=== PATIENT | male | born 2005 | race Caucasian/White ===

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

== ENCOUNTER 2025-06-18 19:50 | Emergency (ER) | payer SELFPAY ==
[2025-06-18 19:55] VITALS: BP 153/85; PULSE 81; RESP 20; TEMP 36.6; O2SAT 99; BMI 32.1
--- NOTE | 2025-06-18 19:59 | ED_ITS ---
HPI - Eye Problem General Chief complaint: Eye Problems Stated complaint: Bleeding/pain lt side eye Time Seen by Provider: 06/18/25 19:59 Source: patient, RN notes reviewed and old records reviewed Mode of arrival: ambulatory Limitations: no limitations History of Present Illness ED Provider: Chris HENLEY Narrative: Patient is a 19 year old male presenting to the emergency department with complaint of bleeding from left eye around 1 hour prior to arrival. States bleeding began after he rubbed his eye. He reports that for the past 1-2 weeks he has had swelling, itching and drainage from both eyes. Yesterday he felt his symptoms were beginning to improve. Today he was rubbing his left eye and then noticed a small amount of bleeding. He does not wear contact lenses. He denies any injury or concern for foreign body. Scant amount of dry blood around left eye upon arrival to the ED. Denies any blurred or double vision. Reports some purulent drainage over the past 1-2 weeks. Denies pain, reports itching/irritation. Related Data Previous Rx's ?Medication ?Instructions ?Recorded doxycycline hyclate 100 mg tablet 100 mg PO BID 14 day s #28 tabs 03/06/22 ondansetron 4 mg disintegrating 4 mg PO Q6-8H PRN naus ea and 03/07/22 tablet vomiting #7 tabs doxycycline hyclate 100 mg capsule 100 mg PO BID #13 c aps 07/19/22 doxycycline hyclate 100 mg tablet 100 mg PO BID #10 ta bs 11/28/22 polymyxin B sulfate 10,000 1 drp ophthalmic (eye) Q3H 7 days 06/18/25 unit-trimethoprim 1 mg/mL eye drops #10 mL Allergies Allergy/AdvReac Type Severity Reaction Status Date / Time No Known Allergies Allergy Verified 06/18/25 19:59 Review of Systems Review of Systems: As per hPI Yes all other systems are reviewed and are negative Constitutional: Constitutional: Reports as per HPI PMFSH Past Medical History Medical History Chlamydia No known health problems Physical Exam Vital Signs: Vital Signs: Last Vital Signs Temp 98 F 06/18/25 19:55 Pulse 81 06/18/25 19:55 Resp 20 06/18/25 19:55 BP 153/85 H 06/18/25 19:55 Pulse Ox 99 06/18/25 19:55 O2 Del Method Room Air 06/18/25 19:55 BMI result Body Mass Index 32.1 Vital signs have been reviewed and appear to be correct. Blood pressure normal. Heart rate normal. Respiratory rate normal. Temperature normal. Oxygen satur ation normal. Const: General: cooperative, healthy appearing and no acute distress Orientation/consciousness: oriented to person, oriented to place, oriented to time and patient oriented x3 Limitations: no limitations HEENT: Head: Yes normocephalic and Yes atraumatic Ears: external ears normal General nose exam: Normal external nose present Face and sinus: Yes face symmetric Mouth: oropharynx normal and moist mucous membranes Throat: Yes uvula midline Eyes: Visual Barnes: normal visual barnes by confrontation Alignment and Position: alignment normal and position normal Periorbital: periorbital findings normal Eyelids: Yes eyelid abnormality (swelling to left upper and lower eyelid) Conjunctivae: conjunctival abnormal left conjunctival injection diffuse and other (no current discharge but scant amount of dried blood under eye) Sclerae: sclerae normal Pupils: Equal, round and reactive pupils present EOM: EOMs intact bilaterally Neck: Neck: Yes normal visual inspection and Yes supple Resp: Effort & Inspection: normal respiratory effort and able to speak in complete sentences Auscultation: clear to auscultation bilaterally Cardio: Rate: regular rate Rhythm: regular rhythm Heart sounds: S1 normal heart sound present and S2 normal heart sound present GI: Palpation (GI): Soft to palpation and nontender Auscultation: normoactive bowel sounds : General: Yes no CVA tenderness Back/Spine/Pelvis: Back: no CVA tenderness Skin: General skin exam: elasticity normal and turgor normal Neuro: General: oriented to person, oriented to place, oriented to time, patient oriented x3, moves all extremities, no focal motor deficits and CN's II- XI intact bilaterally Cranial nerves: Yes Equal, round and reactive pupils present Cognition (Neuro): normal cognition Extrem: General: Yes full ROM, Yes no pedal edema and Yes no calf tenderness Psych: Mental Status: mental status grossly normal Affect: normal affect Thought process: Normal thought process present Medical Decision Making Medical Decision Making MDM Narrative: Patient is a 19 year old male presenting to the emergency department with complaint of bleeding from left eye around 1 hour prior to arrival. On exam patient is awake, A+Ox3, VS WNL, afebrile, normal neurological exam without focal deficits, physical exam findings as above. Given reported symptoms and physical exam findings, presentation most consistent with conjunctivitis. Do not suspect hyphema, globe rupture. Will start patient on polymyxin B/trimethoprim drops. Will refer to reed or wind instrument repairer for ongoing symptoms. Return precautions discussed. Patient verbalized understanding of and agreement with plan. Differential Diagnosis Differential Diagnoses: The differential diagnosis associated with the presentation includes As per [facility] External Record Review External record reviewed: Inpatient record, Office record and Outpatient record Prescription Management I considered prescription management with: Antibiotic Discharge Plan Discharge Clinical Impression: Conjunctivitis Qualifiers: Conjunctivitis type: acute Acute conjunctivitis type: unspecified Laterality: left Qualified Code(s): H10.32 - Unspecified acute conjunctivitis, left eye Patient Disposition: Home, Self-Care Instructions: Conjunctivitis (ED) Additional Instructions: You were evaluated in the emergency department today for eye redness, itching, and discharge. You are being treated for conjunctivitis with antibiotic eyedrops. Please complete the full course as prescribed. Be sure to wash hands thoroughly before and after touching your eyes. You should follow up with your primary care provider or reed or wind instrument repairer this week. Return to the emergency department if you develop changes in vision, increasing pain, fever 100.4F or greater, or any other concerning symptoms. Prescriptions: New polymyxin B sulf-trimethoprim 10,000 unit- 1 mg/mL drops 1 drp ophthalmic (eye) Q3H 7 Days Qty: 10 0RF Rx Instructions: while awake; do not exceed 6 doses in 24 hours No Action doxycycline hyclate 100 mg tablet 100 mg PO BID 14 Days Qty: 28 0RF doxycycline hyclate 100 mg capsule 100 mg PO BID Qty: 13 0RF ondansetron 4 mg tablet,disintegrating 4 mg PO Q6-8H PRN (Reason: nausea and vomiting) Qty: 7 0RF doxycycline hyclate 100 mg tablet 100 mg PO BID Qty: 10 0RF Referrals: Landen Ventura [Physician, Ophthalmology] Clinical Impression: Conjunctivitis Print Language: Emirati
[2025-06-18 20:17] VITALS: BP 153/85; PULSE 81; RESP 20; TEMP 36.6; O2SAT 99
== END 2025-06-18 20:20 | disposition home or self-care (01) ==
LOC: HO.ED 20:19
PROVIDERS: Emergency Provider Student in an Organized Health Care Education/Training Program
DX: H10.32 Unspecified acute conjunctivitis, left eye (principal); H57.12 Ocular pain, left eye
CPT/HCPCS: 99282; 99283

== ENCOUNTER 2025-06-24 22:55 | Emergency (ER) | payer SELFPAY ==
[2025-06-24 22:56] VITALS: BP 121/62; PULSE 101; RESP 20; TEMP 37.1; O2SAT 95; BMI 35.0
--- NOTE | 2025-06-24 23:09 | PC.NURSE ---
pt brought to [id number] 18g iv to LAC placed and DR ying at bedside now. primary rn allen made aware.
--- NOTE | 2025-06-24 23:12 | ED.ALLEREA ---
HPI - Allergic Reaction General Chief complaint: Allergic Reaction Stated complaint: allergic reaction Time Seen by Provider: 06/24/25 23:07 Source: patient and family Mode of arrival: ambulatory Limitations: no limitations History of Present Illness ED Provider: Dr. Lawanda Chaudhry HPI narrative: Patient comes to the emergency room complaining of facial swelling. Patient states that prior to arrival, he was playing basketball and had the sensation that his lips started getting swollen. Patient states that he went home and noticed that his whole face was swollen. Patient denies any difficulty breathing. Patient states that he had this reaction several years ago when he was a child, unclear reason. Patient has multiple allergic reactions to foods, no medicine. To his knowledge, he was not exposed to any of this foods. Patient states that he is currently using antibiotics for his eyes, patient used yesterday polymyxin B with sulf-trimethoprim. Patient states that he has never had any allergic reaction to medications and for the last few days, he has not had any issues. Patient denies any foreign body sensation in the throat. Patient states that he feels very itching his back. Patient denies being on any antihypertensive medications Related Data Previous Rx's ?Medication ?Instructions ?Recorded doxycycline hyclate 100 mg tablet 100 mg PO BID 14 days #28 tabs 03/06/22 ondansetron 4 mg disintegrating 4 mg PO Q6-8H PRN nausea and 03/07/22 tablet vomiting #7 tabs doxycycline hyclate 100 mg capsule 100 mg PO BID #13 caps 07/19/22 doxycycline hyclate 100 mg tablet 100 mg PO BID #10 tabs 11/28/22 polymyxin B sulfate 10,000 1 drp ophthalmic (eye) Q3H 7 days 06/18/25 unit-trimethoprim 1 mg/mL eye drops #10 mL epinephrine 0.3 mg/0.3 mL 0.3 mg (0.3 mL) IM Q10M PRN 06/25/25 injection, auto-injector (EpiPen hypersensitivity reaction #2 ea 2-Atif) famotidine 40 mg tablet (Pepcid) 40 mg PO DAILY #4 tabs 06/25/25 prednisone 50 mg tablet 50 mg PO DAILY #4 tabs 06/25/25 Allergies Allergy/AdvReac Type Severity Reaction Status Date / Time No Known Allergies Allergy Verified 06/24/25 22:59 Review of Systems Review of Systems: Constitutional : Complaining of facial swelling No Weight loss, No Fever, No Chills, No Night Sweats, No Fatigue, No Malaise ENT/Mouth : Complaining of upper lip swelling, No Hearing loss, No Ear Pain, No Nasal Congestion, No Sinus Pain, No Hoarseness, No sore throat, No Rhinorrhea, No Swallowing Difficulty Eyes: No Eye Pain, No Swelling, No Redness, No Foreign Body, No Discharge, No Vision Changes Cardiovascular : No Chest Pain, No SOB, No Dyspnea on Exertion, No Orthopnea, No Edema, No Palpitations Respiratory : No Cough, No Sputum, No Wheezing, No Smoke Exposure, No Dyspnea Gastrointestinal : No Nausea, No Vomiting, No Diarrhea, No Constipation, No abdominal Pain, No Hematochezia, No Melena Genitourinary : no irregular bleeding, No Dysuria, No Urinary Frequency, No Hematuria, No Urinary Incontinence, No Urgency, No Flank Pain, No Urinary Flow Changes, No Hesitancy Musculoskeletal : No joint pain, No Myalgias, No Joint Swelling Skin : Complaining of erythematous skin head to toe, itchy back Neuro : No Weakness, No Numbness, No Paresthesias, No Loss of Consciousness, No Dizziness, No Headache Psych : No Anxiety/Panic, No Depression, No SI/HI/AH/VH, No Social Issues, Heme/Lymph: No Bruising, No Bleeding,No Lymphadenopathy Endocrine : No Polyuria, No Polydipsia, No Temperature Intolerance PMFSH Past Medical History Medical History Chlamydia No known health problems Social History Social History Alcohol intake: current Smoked in Last 30 Days: No Use of substances other than those prescribed or required for medical reasons: Yes Substance Use Type: Marijuana Advance Directives: No Advance Directives Information Provided: Yes Do you have a plan to hurt others: No Plan Physical Exam ED Exam Exam: Appearance: Alert. Oriented X3. No acute distress. Eyes: Pupils equal, round and reactive to light. ENT: Pharynx normal. Patient has diffuse erythema in the face, upper lip swelling, bilateral periorbital swelling. Tongue is normal size, uvula is midline, no phlegmon visualized in the soft palate Neck: Normal inspection. Neck supple. No lymph nodes noted. No crepitus CVS: Normal heart rate and rhythm. Pulses normal. Normal S1 and S2 Respiratory: No respiratory distress. Breath sounds normal. No Wheezing. No rales Abdomen: Soft and nontender. No rigidity. No distention. Skin: Skin warm and dry. Normal skin color. Normal skin turgor. Extremities: No lower extremity edema. No Lacerations. No Rash Neuro: Oriented X 3. No motor deficit. No sensory deficit. Moving all extremities. No slurred speech. CN 2 through 12 grossly intact Psych: calm, cooperative, normal affect Vital Signs: Vital Signs - 24 hr 06/24/25 22:56 06/24/25 23:23 Temperature 98.8 F Pulse Rate 101 H 80 Respiratory Rate 20 20 Blood Pressure 121/62 120/66 Pulse Oximetry 95 98 Oxygen Delivery Method Room Air Room Air BMI result Body Mass Index 35.0 Course Course Course Narrative: Patient comes in with facial swelling, especially in the upper lip. Patient denies any difficulty breathing or swallowing. Uvula midline, normal tongue Patient receiving IV fluids, IV Solu-Medrol, Pepcid and Benadryl. Prior to arrival patient did not take any medications Medications Administered Discontinued Medications Generic Name Dose Route Start Last Admin Trade Name Freq PRN Reason Stop Dose Admin Diphenhydramine HCl 50 mg 06/24/25 23:11 06/24/25 23:15 Diphenhydramine Hcl 50 Mg/Ml Vial IVPUSH 06/24/25 23:12 50 mg ONCE ONE Administration Famotidine 20 mg 06/24/25 23:11 06/24/25 23:15 Famotidine/Pf 20 Mg/2 Ml Vial IVPUSH 06/24/25 23:12 20 mg ONCE ONE Administration Sodium Chloride 1,000 mls @ 999 mls/hr 06/24/25 23:11 06/25/25 00:46 Ns IVCONT 06/25/25 00:11 Infused .Q1H1M ONE Infusion Methylprednisolone Sodium Succinate 125 mg 06/24/25 23:11 06/24/25 23:15 Methylprednisolone Sod Succ 125 Mg/2 Ml Vial IVPUSH 06/24/25 23:12 125 mg ONCE ONE Administration Medical Decision Making Medical Decision Making MDM Narrative: After the above-mentioned medication, patient states that he feels much better. Patient no longer having facial swelling. Patient's upper lip is slightly swollen but much better than earlier today. Patient just informed me that about every month or so he has upper lip swelling. Patient does not know what causes it. It has been going on for a few years. Patient states that he never has any facial swelling or trouble breathing. He has never talked to his PCP about. I urged the patient to make an appointment with his PCP and informed them of the situation. I discussed with the patient that angioedema can be a deadly condition if it affects airway. Patient understands the importance of following up with his PCP. On physical exam prior to discharge: Patient has clear lungs, no wheezing, uvula midline, no oropharyngeal swelling other than slight upper lip swelling, the face is no longer swollen Differential Diagnosis Differential Diagnoses: The differential diagnosis associated with the presentation includes (Angioedema, allergic reaction, hypersensitivity reaction) Admission/Observation Consideration of admission/observation: Escalation of care including admission/observation considered (Given patient's initial presentation, observation/admission was considered) Critical Care Time Critical Care Time Critical Care Time: Yes Total Critical Care Time: 50 Attestation: I have personally provided critical care time. Time includes review of lab data, radiology results, discussion with consultants, and monitoring for potential decompensation. Intervention performed as documented. Discharge Plan Discharge Clinical Impression: Angioedema Patient Disposition: Home, Self-Care Instructions: Angioedema (ED) Additional Instructions: Please follow-up with the primary care physician. You are having angioedema a proximally once every month. This can be a very dangerous condition and even life-threatening if it affects your airway. Please talk to your primary care physician about referring you to an research associate professor. Please ask your pharmacist or watch a YouTube video on how to use your EpiPen in case of severe angioedema/allergic reaction affecting the airway/difficulty breathing. Do not wait for an emergency to try to figure out how to use the epi pen. Please follow-up with your primary care physician tomorrow. If you have any worsening or new symptoms, please return to the emergency room or call 911 Prescriptions: New prednisone 50 mg tablet 50 mg PO DAILY Qty: 4 0RF famotidine [Pepcid] 40 mg tablet 40 mg PO DAILY Qty: 4 0RF epinephrine [EpiPen 2-Atif] 0.3 mg/0.3 mL auto-injector 0.3 mg IM Q10M PRN (Reason: hypersensitivity reaction) Qty: 2 0RF Rx Instructions: for 2 doses No Action doxycycline hyclate 100 mg tablet 100 mg PO BID 14 Days Qty: 28 0RF doxycycline hyclate 100 mg capsule 100 mg PO BID Qty: 13 0RF ondansetron 4 mg tablet,disintegrating 4 mg PO Q6-8H PRN (Reason: nausea and vomiting) Qty: 7 0RF polymyxin B sulf-trimethoprim 10,000 unit- 1 mg/mL drops 1 drp ophthalmic (eye) Q3H 7 Days Qty: 10 0RF Rx Instructions: while awake; do not exceed 6 doses in 24 hours doxycycline hyclate 100 mg tablet 100 mg PO BID Qty: 10 0RF Print Language: Tamazight
--- OUTSIDE RECORDS SUMMARY | 2025-06-24 23:13 | XMS_ITS | Clinical Summary ---
Author Organization [facility] Address [address] [place] [address] Care Team Providers Care Carcass Trimmer Name Role Phone Unavailable Primary Care Provider Unavailabl e Social History Tobacco Use Types Packs/Day Years Used Date Smoking Tobacco: Never Assessed Sex and Gender Information Value Date Recorded Sex Assigned at Not on file Legal Sex Male 6:18 PM EST Gender Identity Not on file Sexual Orientation Not on file Plan of Treatment Health Maintenance Due Date Last Done Comments HPV Vaccines (1 - Male 3-dos e series) 12/23/2018 Meningococcal B Vaccine (1 o f 2 - Standard) 2019 DTaP,Tdap,and Td Vaccines (1 - Tdap) 12/23/2022 Hepatitis B Vaccines (1 of 3 - 19+ 3-dose series) 12/23/2022 Annual Well Child Visit (3-2 1 years old) 09/29/2023 HIV Screening 09/29/2023 Hepatitis C Screening 09/29/2023 Social Influencers of Health Screening 09/29/2023 Depression Screening 08/31/2024 COVID-19 Vaccine (1 - 2023-2 5 season) 2025 Influenza Vaccine (#1) 2025 RSV Immunization Adult Patie nts (1 - 1-dose 75+ series) 12/23/2078 HIB Vaccines Aged Out No longer eligi ble based on patient's age to complete this topic Hepatitis A Vaccines Aged Out No long er eligible based on patient's age to complete this topic IPV Vaccines Aged Out No longer eligi ble based on patient's age to complete this topic MMR Vaccines Aged Out No longer eligi ble based on patient's age to complete this topic Meningococcal ACWY Vaccine Aged Out N o longer eligible based on patient's age to complete this topic Pneumococcal Vaccine: Pediat rics (0 to 5 Years) and At-Risk Patients (6 to 49 Years) Aged Out No longer eligible b ased on patient's age to complete this topic RSV Immunization Patients Un valentine 20 months Aged Out No longer eligible b ased on patient's age to complete this topic Varicella Vaccines Aged Out No longer eligible based on patient's age to complete this topic
[2025-06-24 23:23] VITALS: BP 120/66; PULSE 80; RESP 20; O2SAT 98
--- NOTE | 2025-06-25 00:12 | PC.NURSE ---
pt resting comfortably with eyes closed, tired after IV medications. eyes are less swollen. lips remain swollen but no difficulty breathing
[2025-06-25 01:25] VITALS: BP 105/50; PULSE 64; RESP 16; TEMP 37; O2SAT 97
== END 2025-06-25 01:26 | disposition home or self-care (01) ==
PROVIDERS: Emergency Provider Emergency Medicine
DX: T78.3XXA Angioneurotic edema, initial encounter (principal); Y99.9 Unspecified external cause status
CPT/HCPCS: 96361; 96374; 96375; 99284; J1200; J1308; J2919